=== PATIENT | female | born 1995 | race Caucasian/White ===

== ENCOUNTER 2018-08-28 18:33 | Emergency (ER) | payer OTHER, MEDICAID ==
[~2018-08-28] VITALS: Ht 157.5 cm; Wt 59.0 kg
[2018-08-28] MEDS ORDERED: ACETAMINOPHEN-1 EAC1 PO (20:20)
[2018-08-28] MEDS ORDERED: ZOFRAN ODT4 MG PO (20:20)
[2018-08-28 20:33] VITALS: BP 102/52
== END 2018-08-28 20:36 | disposition home or self-care (01) ==
LOC: M.ERS 18:33
DX: K52.9 Noninfective gastroenteritis and colitis, unspecified (principal)

== ENCOUNTER 2020-01-19 00:57 | Emergency (ER) | payer OTHER, MEDICAID ==
[~2020-01-19] VITALS: Ht 157.5 cm; Wt 70.2 kg
[~2020-01-19 00:57] MED LIST: ACETAMINOPHEN-1 EAC1 PO; ZOFRAN ODT4 MG PO
[2020-01-19] MEDS ORDERED: HYDROCODON-ACE1 EAC8 PO (02:45)
[2020-01-19 02:54] VITALS: BP 113/42
== END 2020-01-19 02:54 | disposition home or self-care (01) ==
LOC: M.ERS 00:57
DX: S31.821A Laceration without foreign body of left buttock, initial encounter (principal); S31.811A Laceration without foreign body of right buttock, initial encounter; F41.9 Anxiety disorder, unspecified; W25.XXXA Contact with sharp glass, initial encounter; Y93.89 Activity, other specified; Y92.89 Other specified places as the place of occurrence of the external cause; Y99.8 Other external cause status

== ENCOUNTER 2020-04-21 12:18 | Emergency (ER) | payer OTHER, MEDICAID ==
[~2020-04-21] VITALS: Ht 157.5 cm; Wt 72.6 kg
[~2020-04-21 12:18] MED LIST changes: +ALPRAZOLAM ER1 MG PO; +DEPRESSION MED; +FLUOCINOLONE AC15 G3 TOP; +HYDROCODON-ACE1 EAC8 PO; +PREDNISONE 10 M10 M1 PO
[2020-04-21] MEDS ORDERED: OXTELLAR XR300 MG PO (12:50)
[2020-04-21] MEDS ORDERED: TRIAMCINOLONE A80 G2 TOP (14:02)
[2020-04-21] MEDS ORDERED: PREDNISONE 10 M10 M1 PO (14:02)
[2020-04-21 14:20] VITALS: BP 128/72
== END 2020-04-21 14:21 | disposition home or self-care (01) ==
LOC: M.ERS 12:18
DX: L50.9 Urticaria, unspecified (principal); F39 Unspecified mood [affective] disorder; F41.9 Anxiety disorder, unspecified; F17.210 Nicotine dependence, cigarettes, uncomplicated; Z79.899 Other long term (current) drug therapy